=== PATIENT | female | born 1930 | race Caucasian/White ===

== ENCOUNTER 2017-12-24 16:15 | Emergency (ER) | payer OTHER ==
[~2017-12-24] VITALS: Ht 162.6 cm; Wt 79.4 kg
[~2017-12-24 16:15] MED LIST: GLIPIZIDE5 MG PO; GLYBURID-METFO1 EAC3 PO; LOSARTAN PO; SOMA350 MG; Z.0.ACTOS30 MG PO; Z.0.SIMVASTATIN80 MG PO; [UNRECOGNIZED DRUG - OTHER] PO
[2017-12-24] MEDS ORDERED: ACETAMINOPHEN/CODEINE ELIX 120-12 MG/5 ML UDC NG ONE (17:00)
--- NOTE | 2017-12-24 18:06 | Diagnostic Imaging Report ---
Ankle complete CPT CODE: 31045 HISTORY: Fall several days ago TECHNIQUE: Three views left ankle obtained COMPARISON: None. FINDINGS: The bones are diffusely demineralized. The distal tibia and fibula appear intact. Ankle mortise remains symmetric. There may be minimal medial soft tissue swelling adjacent to the malleolus. The calcaneus appears intact with small plantar and posterior spurs. The visualized portions of the midfoot and forefoot are intact. No tibiotalar joint effusion. IMPRESSION: No evidence of acute fracture or dislocation involving the ankle. Signed by: Dr. Andrez Tracy MD on 12/24/2017 6:03 PM
--- NOTE | 2017-12-24 18:08 | Diagnostic Imaging Report ---
Ankle complete CPT CODE: 86771 HISTORY: Fall several days ago TECHNIQUE: Three views right ankle obtained COMPARISON: None. FINDINGS: The bones are diffusely demineralized. The distal tibia and fibula appear intact. Ankle mortise remains symmetric. There is mild bilateral soft tissue swelling adjacent to the malleoli. The calcaneus appears intact with a small plantar spur. The visualized portions of the midfoot and forefoot are intact. No tibiotalar joint effusion. IMPRESSION: No evidence of acute fracture or dislocation involving the ankle. Signed by: Dr. Andrez Tracy MD on 12/24/2017 6:04 PM
--- NOTE | 2017-12-24 18:10 | Diagnostic Imaging Report ---
Tibia fibula right CPT code: 33893 Indication: Fall several days ago Technique: AP and lateral views of the right tibia and fibula obtained. Comparison: None Findings: The bones are diffusely demineralized. The patella is intact and normally situated without joint effusion. The distal femur is intact. There are mild degenerative changes of the medial, lateral, patellofemoral compartments with chondrocalcinosis. The tibia and fibula are intact. No focal osseous lesions. Soft tissues: No radiopaque foreign bodies. IMPRESSION: 1. No acute fracture or dislocation. 2. Tricompartmental osteoarthritis of the knee as described above. Signed by: Dr. Andrez Tracy MD on 12/24/2017 6:06 PM
--- NOTE | 2017-12-24 18:11 | Diagnostic Imaging Report ---
Right complete knee. CPT CODE: 16979. INDICATION: Fall several days ago COMPARISON: None FINDINGS: The bones are diffusely demineralized. There is mild medial, lateral, patellofemoral compartment narrowing with osteophytosis and chondrocalcinosis. No acute fracture or dislocation. No joint effusion. There are calcifications of the arterial structures. IMPRESSION: No acute traumatic pathology or joint effusion. Tricompartmental osteoarthritis as described above. Signed by: Dr. Andrez Tracy MD on 12/24/2017 6:07 PM
--- NOTE | 2017-12-24 18:14 | Diagnostic Imaging Report ---
Pelvis CPT code: 53106 Indication: Fall several days ago Technique: A.P. view of the pelvis obtained Comparison: None Findings: No diastases of the pubic symphysis or sacroiliac joints. There are moderate degenerative changes of the lower lumbar spine. The hips are intact and normally aligned with mild degenerative changes. Proximal femurs are intact. Diffuse vascular calcifications are present in the arterial structures. Numerous phleboliths are present. IMPRESSION: No fracture or dislocation on this single image. If there is strong clinical concern for hip fracture, recommend dedicated imaging. Signed by: Dr. Andrez Tracy MD on 12/24/2017 6:11 PM
[2017-12-24 18:37] VITALS: BP 142/66
--- NOTE | 2017-12-24 19:05 | Diagnostic Imaging Report ---
EXAM: Unilateral Lower Extremity Venous Duplex Ultrasound INDICATION: fall, right leg pain and swelling COMPARISON: None TECHNIQUE: Cho scale, color Doppler and spectral waveform analysis of the right lower extremity deep venous system was performed. FINDINGS: Common Femoral: Fully compressible with normal spontaneous waveforms. Femoral: Fully compressible with normal spontaneous waveforms. Popliteal: Fully compressible with normal spontaneous waveforms. Posterior tibial veins: Patent with normal waveforms. Peroneal veins: Not visualized. As result, augmentation was not performed. IMPRESSION: No evidence of deep venous thrombosis above the right calf. Signed by: Dr. Andrez Tracy MD on 12/24/2017 7:01 PM
== END 2017-12-24 18:35 | disposition home or self-care (01) ==
LOC: FSED 16:15
DX: S90.01XA Contusion of right ankle, initial encounter (principal); S70.02XA Contusion of left hip, initial encounter; S70.01XA Contusion of right hip, initial encounter; S80.01XA Contusion of right knee, initial encounter; S80.11XA Contusion of right lower leg, initial encounter; X50.1XXA Overexertion from prolonged static or awkward postures, initial encounter; Y93.01 Activity, walking, marching and hiking; Y92.007 Garden or yard of unspecified non-institutional (private) residence as the place of occurrence of the external cause
CPT/HCPCS: 72170; 93971; 99284

== ENCOUNTER 2019-12-15 21:56 | Emergency (ER) | payer OTHER ==
[~2019-12-15] VITALS: Ht 162.6 cm; Wt 79.4 kg
--- OUTSIDE RECORDS SUMMARY | 2019-12-15 22:36 | XMS REPORT ---
Author Author MEG Iglesias Organization [employer] Address Unknown Phone Unavailable Care Team Providers Care Expressive Music Therapist Name Role Phone Kelsie Iglesias CP Unavailable Allergies, Adverse Reactions, Alerts Substance Reaction Event Type N.K.D.A. 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, type I [juvenile type], not stated as uncontrolled 250.01 Active Assessment Palpitations R00.2 Active Assessment Other symptoms involving cardiovascular system R09.89 Active Assessment 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 Active Medications Medication Code System Code Instructions Start Date End Date Status Dosage Pioglitazone HCl ND 99239643133 30 MG Orally Once a day Active 1 tablet Metoprolol Tartrate ND 23710507539 25 Orally Twice a day Active TAKE 1 TABLET BY MOUTH TWICE DAILY Simvastatin ND 12626903492 80 MG Orally Once a day Active 1 tablet in the evening Vitamin D ND 41432131281 1000 UNIT Orally Once a day Active 1 tablet Amlodipine Besylate ND 63143620798 5 MG Orally Once a day Active 1 tablet Lopressor ND 07310547817 25 MG Orally Twice a day A ctive 1 tablet Glimepiride ND 17357790896 Orally Once a day Activ e 1 tablet with breakfast or the first main meal of the day Vital Signs Date/Time: May 24, 2019 BMI 31.05 Index Weight 159 lbs Height 5'4 in Cardiac Monitoring Heart Rate 60 /min Blood Pressure Diastolic 80 mm Hg Blood Pressure Systolic 110 mm Hg Results No Known Results Summary Purpose [employer] Submission
--- OUTSIDE RECORDS SUMMARY | 2019-12-15 22:36 | XMS REPORT ---
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
--- OUTSIDE RECORDS SUMMARY | 2019-12-15 22:36 | XMS REPORT | Continuity of Care Document ---
Author Author [facility] t Organization [facility] Address [address] [place] [address] Phone Unavailable Care Team Providers Care Dietetic Tech Name Role Phone NONSTAFF PCP Unavailable Brannon PACK Unavailable Payers Payer Name Policy Type Policy Number Effective Date Expiration Date Leonela Camargo [id number] 2015 00:00:00 PAL[place]A morales [facility] Problems Condition Name Condition Details Condition Category Status Onset Date Resolution Date Last Treatment Date Treating Clinician Comments Source Other symptoms involving cardiovascular system Other symptoms involving cardiovascular system Active Diagnosis 11/11/2019 [facility] Diagnosis Active 2019-11-11 03:05:26 [facility] Atheroscler of enterprise artery of both legs with intermi t claudication Atheroscler of enterprise artery of both legs with intermit claudication Active Diagnosis 11/11/2019 [facility] Diagnosis Active 2019-11-11 03:05:26 [facility] 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 Active Problem 11/11/2019 [facility] Problem Active 2019-11-11 03:05:26 [facility] 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 Atherosclerosis of enterprise arteries of the extremities with intermittent claudication Active Problem 11/11/2019 [facility] Problem Active 2019-11-11 03:05:26 [facility] Diabetes mellitus without mention of com plication, type I [juvenile type], not stated as uncontrolled Diabetes mellitu s without mention of complication, type I [juvenile type], not stated as uncontrolled Active Problem 11/11/2019 med med Problem Active 2019-11-11 03:05:26 [facility] DM w/o complication type II, uncontrolled DM w/o complication type II, uncontrolled Active Diagnosis 11/11/2019 med [facility] Diagnosis Active 2019-11-11 03:05:26 Maribell Monkann Pure hypercholesterolemia Pure hypercholesterolemia Active Diagnosis 03/23/2017 Ahmed Ahmed Diagnosis Active 2017-03-23 04:17:10 Maribell Monkann Benign hypertensive heart disease without congestive h eart failure Benign hypertensive heart disease without congestive heart failure Active Diagnosis 11/11/2019 Ahmed Ahmed Diagnosis Active 2019-11-11 03:05:26 Maribell Monkann Palpitations Palp itations Active Diagnosis 11/11/2019 Ahmed [facility] Diagnosis Active 2019-11-11 03:05:26 [facility] Pure hypercholesterolemia Pure hypercholesterolemia Active Diagnosis 11/11/2019 Ahmed Ahmed Diagnosis Active 2019-11-11 03:05:26 [facility] Other symptoms involving cardiovascular system Other symptoms involving cardiovascular system Active Diagnosis 03/25/2016 Ahmed Ahmed Diagnosis Active 2016-03-25 04:17:09 Maribell Monkann Diabetes Mellitus Diab etes Mellitus Active 03/06/2013 [facility] Problem Active 2013-03-06 19:01:42 [facility] Hypertension Hype rtension Active 03/06/2013 [facility] Problem Active 2013-03-06 19:01:42 [facility] Hyperlipidemia Hype rlipidemia Active 03/06/[address] May Casiano [facility] Problem Active 2013-03-06 19:01:42 [facility] Chest Pain Ches t Pain Active 02/08/2013 Instructed to go to ER if chest pain last more than 5 minutes or not relieved with nitrogylcerin. [facility] Problem Active 2013-02-08 18:17:04 [facility] Allergies, Adverse Reactions, Alerts Allergy Name Allergy Type Status Severity Reaction(s) Onset Date Inacti ve Date Treating Clinician Comments Source N.Rocky.Soumya.A. N.K.Soumya.A. Active Info Not Available 2019-05-24 00:00:00 Maribell Tai No Known Drug Allergies No Known Drug Allergies Active [facility] Family History Family Member Diagnosis Comments Start Date Stop Date Source Unknown Family Member Family History 2013-01-23 19:32:29 2 19:32:29 [facility] Social History Social Habit Start Date Stop Date Quantity Comments Source [place]2016-01-14 00:00:00 2016-01-14 00:00:00 [facility] Social History 2013-03-06 19:01:42 2013-03-06 19:01:42 [facility] Medications Ordered Medication Name Filled Medication Name Start Date Stop Da te Current Medication? Ordering Clinician Indication Dosage Frequency Signature (SIG) Comments Components Source Glimepiride 2019-11-11 03:05:26 Yes Ahmed Ahmed 1 tablet with breakfast or the first main meal of the day [facility] Simvastatin 2019-11-11 03:05:26 Yes Ahmed Ahmed 1 tablet in the evening [facility] Lopressor 2019-11-11 03:05:26 Yes Ahmed Ahmed 1 t ablet [facility] Metoprolol Tartrate 2019-11-11 03:05:26 Yes Ahmed Ahmed TAKE 1 TABLET BY MOUTH TWICE DAILY [facility] Pioglitazone HCl 2019-11-11 03:05:26 Yes Ahmed Ahmed 1 tablet [facility] Vitamin D 2019-11-11 03:05:26 Yes Ahmed Ahmed 1 t ablet [facility] Amlodipine Besylate 2019-11-11 03:05:26 Yes Ahmed Ahmed 1 tablet [facility] Metoprolol Tartrate 2019-11-10 03:59:50 Yes Ahmed Ahmed TAKE 1 TABLET BY MOUTH TWICE DAILY [facility] Losartan Potassium 2018-08-30 03:23:47 Yes Ahmed Ahmed 1 tablet [facility] Actos 2018-08-30 03:23:47 Yes Ahmed Ahmed 1 table t [facility] Clonidine HCl 2018-08-30 02:53:56 Yes Ahmed Ahmed 1 tablet at bedtime [facility] Lopressor 2016-03-25 04:17:09 Yes Ahmed Ahmed 1 t ablet [facility] Actos 2016-03-25 04:17:09 Yes Ahmed Ahmed 1 table t [facility] Glimepiride 2016-03-25 04:17:09 Yes Ahmed Ahmed 1 tablet with breakfast or the first main meal of the day [facility] Simvastatin 2016-03-25 04:17:09 Yes Ahmed Ahmed 1 tablet in the evening [facility] Clonidine HCl 2016-03-25 04:17:09 Yes Ahmed Ahmed 1 tablet at bedtime [facility] Losartan Potassium 2016-03-25 04:17:09 Yes Ahmed Ahmed 1 tablet [facility] Simvastatin 40 MG Oral Tablet 2013-03-06 19:01:42 Yes (Active) [facility] Losartan Potassium 50 MG Oral Tablet 2013-03-06 19:01:42 Ye s (Active) Maribell Tai Actos 30 MG Oral Tablet 2013-03-06 19:01:42 Yes (Active) Maribell Tai GlyBURIDE 5 MG Oral Tablet 2013-03-06 19:01:42 Yes (Active) Maribell Tai TraMADol HCl 50 MG Oral Tablet 2013-02-08 18:17:04 Yes (Active) Maribell Tai Carisoprodol 350 MG Oral Tablet 2013-02-08 18:17:04 Yes (Active) Maribell Tai Metoprolol Succinate ER 25 MG Oral Tablet Extended Release 2 4 Hour 2013-01-23 05:00:00 Yes ; Start Date: 3; End Date: (Active) Maribell Tai Glipizide 5 Mg Tablet Glipizide 5 Mg Tablet Yes 5 Twice A Day [facility] Glyburide, Micro/Metformin Hcl (Glyburid-Metformin 5-5 00 Mg Tb) 1 Each Tablet Glyburide, Micro/Metformin Hcl (Glyburid-Metformin 5-500 Mg Tb) 1 Each Tablet Yes 2 Twice A Day [facility] Pioglitazone Hcl (Actos) 30 Mg Tablet Pioglitazone Hcl (Actos) 30 M g Tablet Yes 30 Daily [facility] Simvastatin 80 Mg Tablet Simvastatin 80 Mg Tablet Yes 80 Daily [facility] Carisoprodol (Soma) 350 Mg Tablet, Carisoprodol (Soma) 350 Mg Vasu rose, 2014-07-11 00:00:00 [facility] Losartan , Oral Losartan , Oral 2014-07-11 00:00:00 No Daily [facility] Olmesartan Medoxomil (Benicar) 5 Mg Tablet, Mg Oral O lmesartan Medoxomil (Benicar) 5 Mg Tablet, Mg Oral 2012-09-30 00:00:00 [facility] Vital Signs Vital Name Observation Time Observation Value Comments Source Weight 2019-05-24 15:15:00 Maribell Tai Heart Rate 2019-05-24 15:15:00 Maribell Tai Diastolic (mm Hg) 2019-05-24 15:15:00 [facility] Systolic (mm Hg) 2019-05-24 15:15:00 [facility] Weight 2018-11-17 19:00:00 [facility] Heart Rate 2018-11-17 19:00:00 [facility] Diastolic (mm Hg) 2018-11-17 19:00:00 [facility] Systolic (mm Hg) 2018-11-17 19:00:00 [facility] Weight 2018-05-17 19:00:00 [facility] Heart Rate 2018-05-17 19:00:00 [facility] Diastolic (mm Hg) 2018-05-17 19:00:00 [facility] Systolic (mm Hg) 2018-05-17 19:00:00 [facility] Weight 2018-01-13 18:00:00 [facility] Heart Rate 2018-01-13 18:00:00 [facility] Diastolic (mm Hg) 2018-01-13 18:00:00 [facility] Systolic (mm Hg) 2018-01-13 18:00:00 [facility] Weight 2017-06-28 20:45:00 [facility] Heart Rate 2017-06-28 20:45:00 [facility] Diastolic (mm Hg) 2017-06-28 20:45:00 [facility] Systolic (mm Hg) 2017-06-28 20:45:00 [facility] [place] Weight 2017-03-09 16:00:00 [facility] Heart Rate 2017-03-09 16:00:00 [facility] Diastolic (mm Hg) 2017-03-09 16:00:00 [facility] Systolic (mm Hg) 2017-03-09 16:00:00 [facility] Weight 2016-12-29 17:15:00 [facility] Heart Rate 2016-12-29 17:15:00 [facility] Diastolic (mm Hg) 2016-12-29 17:15:00 [facility] Systolic (mm Hg) 2016-12-29 17:15:00 [facility] Weight 2016-10-13 16:00:00 [facility] Heart Rate 2016-10-13 16:00:00 [facility] Diastolic (mm Hg) 2016-10-13 16:00:00 [facility] Systolic (mm Hg) 2016-10-13 16:00:00 [facility] Weight 2016-01-14 16:45:00 [facility] Heart Rate 2016-01-14 16:45:00 [facility] Diastolic (mm Hg) 2016-01-14 16:45:00 [facility] Systolic (mm Hg) 2016-01-14 16:45:00 [facility] Weight 2015-12-19 20:15:00 [facility] Heart Rate 2015-12-19 20:15:00 [facility] Diastolic (mm Hg) 2015-12-19 20:15:00 [facility] Systolic (mm Hg) 2015-12-19 20:15:00 [facility] Weight 2015-11-06 21:00:00 [facility] Heart Rate 2015-11-06 21:00:00 [facility] Diastolic (mm Hg) 2015-11-06 21:00:00 [facility] Systolic (mm Hg) 2015-11-06 21:00:00 [facility] Weight 2015-10-15 19:30:00 [facility] Heart Rate 2015-10-15 19:30:00 [facility] Diastolic (mm Hg) 2015-10-15 19:30:00 [facility] Systolic (mm Hg) 2015-10-15 19:30:00 [facility] Weight 2015-03-21 17:30:00 [facility] Heart Rate 2015-03-21 17:30:00 [facility] Diastolic (mm Hg) 2015-03-21 17:30:00 [facility] Systolic (mm Hg) 2015-03-21 17:30:00 [facility] Weight 2014-06-07 20:45:00 [facility] Heart Rate 2014-06-07 20:45:00 [facility] Diastolic (mm Hg) 2014-06-07 20:45:00 [facility] Systolic (mm Hg) 2014-06-07 20:45:00 [facility] Procedures This patient has no known procedures. Plan of Care Planned Activity Planned Date Details Comments Source Future Scheduled Test 2013-02-07 21:18:09 Plan of Care [code = 1877 6-5] [facility] Future Scheduled Test 2013-01-23 19:32:29 Plan of Care [code = 1877 6-5] [facility] Encounters Start Date/Time End Date/Time Encounter Type Admission Type [facility] Care Department Encounter ID Source 2019-09-29 07:55:00 2019-09-29 07:55:00 [facility] [id number] [facility] 2019-06-27 09:28:00 2019-06-27 09:28:00 [facility] [id number] [facility] 2019-05-24 10:15:00 2019-05-24 10:15:00 [facility] [id number] [facility] 2018-11-17 14:00:00 2018-11-17 14:00:00 [facility] [id number] [facility] 2018-10-20 09:16:00 2018-10-20 09:16:00 [facility] [id number] [facility] 2018-10-12 09:36:00 2018-10-12 09:36:00 [facility] [id number] [facility] 2018-05-17 14:00:00 2018-05-17 14:00:00 [facility] [id number] [facility] 2018-01-13 13:00:00 2018-01-13 13:00:00 [facility] [id number] [facility] 2017-12-24 16:15:00 2017-12-24 18:35:00 Departed Emergency Room 1 RAMONE OLAF [facility] [id number] [facility] 2017-06-28 15:45:00 2017-06-28 15:45:00 [facility] [id number] [facility] 2017-03-09 10:00:00 2017-03-09 10:00:00 [facility] [id number] [facility] 2016-12-29 11:15:00 2016-12-29 11:15:00 [facility]patient [facility] [id number] [facility] 2016-10-13 10:00:00 2016-10-13 10:00:00 Outpatient [facility] [id number] [facility] 2016-01-21 09:39:00 2016-01-21 09:39:00 Outpatient Kelsie Iglesias MD, WAQAR Ig[place]ias [place], [place] [id number] [facility]Works 2016-01-14 10:45:00 2016-01-14 10:45:00 Outpatient Kelsie Iglesias MD, WAQAR Ig[place]ias [place], [place] [id number] [facility] 2015-12-19 14:15:00 2015-12-19 14:15:00 Outpatient Kelsie Iglesias MD, WAQAR Ig[place]ias [place], [place] [id number] [facility] 2015-11-06 15:00:00 2015-11-06 15:00:00 Outpatient Kelsie Iglesias MD, WAQAR Ig[place]ias [place], [place] [id number] [facility] 2015-10-15 13:30:00 2015-10-15 13:30:00 Outpatient Kelsie Iglesias MD, WAQAR [place]ias [place], [place] [id number] [facility] 2015-03-21 11:30:00 2015-03-21 11:30:00 Outpatient Kelsie Iglesias MD, WAQ[place], [place] [id number] [facility] 2014-06-07 14:45:00 2014-06-07 14:45:00 Outpatient Kelsie Iglesias MD, WAQAR [place]ias [place], [place] [id number] [facility] 2013-03-06 14:01:43 2013-03-06 14:01:42 Outpatient [facility] [id number] 2013-02-08 13:17:04 2013-02-08 13:17:04 Outpatient [facility] [id number] 2013-02-07 16:18:10 2013-02-07 16:18:09 Outpatient [facility] [id number] 2013-01-23 14:32:29 2013-01-23 14:32:29 Outpatient [facility] [id number] Results Test Description Test Time Test Comments Results Result Comments Source US LOW EXT VEINS LIMITED UNI 2017-12-24 18:57:00 [place] [address] Patient Name: MEG VIEYRA MR #: [id number] : 1930 Age/Sex: 87/F Req #: [id number] Adm Physician: Ordered by: OLAF PACK MD Report #: [id number] Location: [facility] Room/Bed: Procedure: [id number] HOPD/US LOW EXT VEINS LIMITED UNI Exam Date: 12/24/17 Exam Time: 1839 REPORT STATUS: Signed EXAM: Unilateral Lower Extremity Venous Duplex Ultrasound INDICATION: fall, right leg pain and swelling COMPARISON: None TECHNIQUE: Cho scale, color Doppler and spectral waveform analysis of the right lower extremity deep venous system was performed. FINDINGS: Common Femoral: Fully compressible with normal spontaneous waveforms. Femoral: Fully compressible with normal spontaneous waveforms. Popliteal: Fully compressible with normal spontaneous waveforms. Posterior tibial veins: Patent with normal waveforms. Peroneal veins: Not visualized. As result, augmentation was not performed. IMPRESSION: No evidence of deep venous thrombosis above the right calf. Signed by: Dr. Mark Anthony Tracy MD on 12/24/2017 7:01 PM Dictated By: MARK ANTHONY TRACY MD 00 Transcribed By: ABDULKADIR on 12/24/171900 COPY TO: OLAF PACK MD PELVIS 1-2 VIEW - HOPD 2017-12-24 18:08:00 [place] [address] Patient Name: MEG VIEYRA MR #: [id number] : 1930 Age/Sex: 87/F Req #: [id number] Adm Physician: Ordered by: OLAF PACK MD Report #: [id number] Location: [facility] Room/Bed: Procedure: [id number] HOPD/PELVIS 1-2 VIEW - HOPD Exam Date: Exam Time: REPORT STATUS: Signed Pelvis CPT code: 93833 Indication: Fall several days ago Technique: A.P. view of the pelvis obtained Comparison: None Findings: No diastases of the pubic symphysis or sacroiliac joints. There are moderate degenerative changes of the lower lumbar spine. The hips are intact and normally aligned with mild degenerative changes. Proximal femurs are intact. Diffuse vascular calcifications are present in the arterial structures. Numerous phleboliths are present. IMPRESSION: No fracture or dislocation on this single image. If there is strong clinical concern for hip fracture, recommend dedicated imaging. Signed by: Dr. Mark Anthony Tracy MD on 12/24/2017 6:11 PM Dictated By: MARK ANTHONY TRACY MD 10 Transcribed By: ABDULKADIR on 12/24/171810 COPY TO: OLAF PACK MD KNEE 3VW RT - HOPD 2017-12-24 18:06:00 [place] [address] Patient Name: MEG VIEYRA MR #: [id number] : 1930 Age/Sex: 87/F Req #: [id number] Adm Physician: Ordered by: OLAF PACK MD Report #: [id number] Location: [facility] Room/Bed: Procedure: HOPD/KNEE 3VW RT - HOPD Exam Date: Exam Time: REPORT STATUS: Signed Right complete knee. CPT CODE: 99779. INDICATION: Fall several days ago COMPARISON: None FINDINGS: The bones are diffusely demineralized. There is mild medial, lateral, patellofemoral compartment narrowing with osteophytosis and chondrocalcinosis. No acute fracture or dislocation. No joint effusion. There are calcifications of the arterial structures. IMPRESSION: No acute traumatic pathology or joint effusion. Tricompartmental osteoarthritis as described above. Signed by: Dr. Mark Anthony Tracy MD on 12/24/2017 6:07 PM Dictated By: MARK ANTHONY TRACY MD 06 Transcribed By: ABDULKADIR on 12/24/171806 COPY TO: OLAF PACK MD TIB/FIB 2VW RT - HOPD 2017-12-24 18:05:00 [place] [address] Patient Name: MEG VIEYRA MR #: [id number] : 1930 Age/Sex: 87/F Req #: [id number] [facility] Physician: Ordered by: OLAF PACK MD Report #: [id number] Location: [facility] Room/Bed: Procedure: HOPD/TIB/FIB 2VW RT - HOPD Exam Date: Exam Time: REPORT STATUS: Signed Tibia fibula right CPT code: 25973 Indication: Fall several days ago Technique: AP and lateral views of the right tibia and fibula obtained. Comparison: None Findings: The bones are diffusely demineralized. The p atella is intact and normally situated without joint effusion. The distal femur is intact. There are mild degenerative changes of the medial, lateral, patellofemoral compartments with chondrocalcinosis. The tibia and fibula are intact. No focal osseous lesions. Soft tissues: No radiopaque foreign bodies. IMPRESSION: 1. No acute fracture or dislocation. 2. Tricompartmental osteoarthritis of the knee as described above. Signed by: Dr. Mark Anthony Tracy MD on 12/24/2017 6:06 PM Dictated By: MARK ANTHONY TRACY MD 05 Transcribed By: ABDULKADIR on 12/24/171805 COPY TO: OLAF PACK MD ANKLE 3 VIEW RT - HOPD 2017-12-24 18:03:00 [place] [address] Patient Name: MEG VIEYRA MR #: [id number] : 1930 Age/Sex: 87/F Req #: [id number] Adm Physician: Ordered by: OLAF PACK MD Report #: [id number] Location: [facility] Room/Bed: Procedure: [id number] HOPD/ANKLE 3 VIEW RT - HOPD Exam Date: Exam Time: REPORT STATUS: Signed Ankle complete CPT CODE: 69850 HISTORY: Fall several days ago TECHNIQUE: Three views right ankle obtained COMPARISON: None. FINDINGS: The bones are diffusely demineralized. The distal tibia and fibula appear intact. Ankle mortise remains symmetric. There is mild bilateral soft tissue swelling adjacent to the malleoli. The calcaneus appears intact with a small plantar spur. The visualized portions of the midfoot and forefoot are intact. No tibiotalar joint effusion. IMPRESSION: No evidence of acute fracture or dislocation involving the ankle. Signed by: Dr. Mark Anthony Tracy MD on 12/24/2017 6:04 PM Dictated By: MARK ANTHONY TRACY MD 03 Transcribed By: ABDULKADIR on 12/24/171803 COPY TO: OLAF PACK MD [facility] 2017-12-[facility] 18:01:00 [place] [address] Patient Name: MEG VIEYRA MR #: [id number] : 1930 Age/Sex: 87/F Req #: [id number] Adm Physician: Ordered by: OLAF PACK MD Report #: [id number] Location: [facility] Room/Bed: Procedure: [id number] HOPD[facility]ANKLE [facility] Exam Date: Exam Time: REPORT STATUS: Signed Ankle complete CPT CODE: 64094 HISTORY: Fall several days ago TECHNIQUE: Three views left ankle obtained COMPARISON: None. FINDINGS: The bones are diffusely demineralized. The distal tibia and fibula appear intact. Ankle mortise remains symmetric. There may be minimal medial soft tissue swelling adjacent to the malleolus. The calcaneus appears intact with small plantar and posterior spurs. The visualized portions of the midfoot and forefoot are intact. No tibiotalar joint effusion. IMPRESSION: No evidence of acute fracture or dislocation involving the ankle. Signed by: Dr. Mark Anthony Tracy MD on 12/24/2017 6:03 PM Dictated By: MARK ANTHONY TRACY MD 02 Transcribed By: ABDULKADIR on 12/24/171802 COPY TO: OLAF PACK MD
--- OUTSIDE RECORDS SUMMARY | 2019-12-15 22:36 | XMS REPORT ---
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
--- OUTSIDE RECORDS SUMMARY | 2019-12-15 22:36 | XMS REPORT ---
Author Author MEG DEE Organization Unknown Address Unknown Phone Care Team Providers Care Legislators Name Role Phone LUIZ PRASHANTH PP Unavailable Reason for Referral No Reason for Referral was given. History of Present Illness No HPI available. Problems * Normal Routine History And Physical Geriatric (80 +) (V70.0); (Active) * Diabetes Mellitus (250.00); (Active) * Hypertension (401.9); (Active) * Hyperlipidemia (272.4); (Active) * Chest Pain Comments: Instructed to go to ER if chest pain last more than 5 minutes or not relieved with nitrogylcerin. (786.50); (Active) Medication * Simvastatin 40 MG Oral Tablet; TAKE 1 TABLET DAILY. (Active) * Losartan Potassium 50 MG Oral Tablet; TAKE 1 TABLET DAILY. (Active) * TraMADol HCl 50 MG Oral Tablet; TAKE TABLET PRN (Active) * Actos 30 MG Oral Tablet; TAKE 1 TABLET ONCE DAILY. (Active) * GlyBURIDE 5 MG Oral Tablet; TAKE 1 TABLET DAILY. (Active) * Carisoprodol 350 MG Oral Tablet; TAKE 1/2 TABLET AT BEDTIME NEEDED. (Active) * Metoprolol Succinate ER 25 MG Oral Tablet Extended Release 24 Hour; TAKE 1 TABLET BEDTIME; Start Date: 01/23/2013; End Date: (Active) Allergies and Adverse Reactions * No Known Drug Allergies (Active) Past Medical History * No Significant Medical History Procedures Procedure Procedure Date Date Completed Status Tonsillectomy - - Resolved Appendectomy - - Resolved Cholecystectomy - - Resolved Back Surgery - - Resolved Hysterectomy - - Resolved Cataract Surgery - - Resolved Shoulder Surgery Right - - Resolved Family History * Fraternal history of Heart Disease (V17.49); (Active) * Maternal history of Stroke Syndrome (V17.1); (Active) * Fraternal history of Heart Disease (V17.49); (Active) Social History * Activities Of Daily Living (Active) * Never A Smoker (Active) Treatment Plan * [N] Nuclear Stress Test Myocardial Perfusion Study with Wall Motion 25782 Routine Advance Directives * No Advance Directives available. Encounters * AUDIT 01/23/2013 * BONNIE, Provider: DARLYN CHENG, Status: Joshua, Time: 8:00 AM 02/08/2013 * EST, Provider: PRASHANTH DEE, Status: Joshua, Time: 1:30 PM 03/06/2013
--- OUTSIDE RECORDS SUMMARY | 2019-12-15 22:36 | XMS REPORT ---
Author Author MEG Mcdonald Organization Unknown Address Unknown Phone Care Team Providers Care Refiner Operator Name Role Phone Mike Mcdonald PP Unavailable Reason for Referral No Reason [...] Living (Active) * Never A Smoker (Active) Advance Directives * No Advance Directives available. Encounters * AUDIT 02/08/2013 * EST, Provider: PRASHANTH DEE, Status: Pen, Time: 1:30 PM 03/06/2013
--- OUTSIDE RECORDS SUMMARY | 2019-12-15 22:36 | XMS REPORT ---
Author Author MEG Mason Organization Unknown Address Unknown Phone Care Team Providers Care Florist Supplies Salesperson Name Role Phone Penny Mason PP Unavailable Reason for Referral No Reason [...] Test Myocardial Perfusion Study with Wall Motion 18827 02/08/2013 Routine Advance Directives * No Advance Directives available. Encounters * AUDIT 02/07/2013 * BONNIE, Provider: DARLYN CHENG, Status: Joshua, Time: 8:00 AM 02/08/2013 * EST, Provider: PRASHANTH DEE, Status: Joshua, Time: 1:30 PM 03/06/2013
--- OUTSIDE RECORDS SUMMARY | 2019-12-15 22:36 | XMS REPORT ---
Author Author MEG Iglesias Organization [employer] Address Unknown Phone Unavailable Care Team Providers Care Toddler Caregiver Name Role Phone Kelsie Iglesias CP Unavailable Allergies, Adverse Reactions, Alerts Substance Reaction Event Type N.K.D.A. 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.10 Active Problem Atherosclerosis of [place] ar teries of the extremities with intermittent [...] Instructions Start Date End Date Status Dosage Vitamin D [facility] 43393016927 1000 UNIT Orally Once a day Active 1 tablet Simvastatin ND 29270513654 80 MG Orally Once a day Active 1 tablet in the evening Lopressor ND 90324527590 25 MG Orally Twice a day A ctive 1 tablet Pioglitazone HCl ND 01831400626 30 MG Orally Once a day Active 1 tablet Amlodipine Besylate ND 54705965902 5 MG Orally Once a day Active 1 tablet Metoprolol Tartrate ND 00572508652 25 Active TAKE 1 TABLET BY MOUTH TWICE DAILY Glimepiride ND 57262744090 Orally Once a day Activ e 1 tablet with breakfast or the first main meal of the day Vital Signs Date/Time: November 17, 2018 BMI 33.98 Index Weight 174 lbs Height 5'4 in Cardiac Monitoring Heart Rate 62 /min Blood Pressure Diastolic 72 mm Hg Blood Pressure Systolic 122 mm Hg Results No Known Results Summary Purpose eClinicalWorks Submission
--- OUTSIDE RECORDS SUMMARY | 2019-12-15 22:36 | XMS REPORT | Continuity of Care Document ---
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 Active Problem 11/11/2019 Kelsie Sharpemed Diabetes mellitus without mention of com plication, type I [juvenile type], not stated as uncontrolled Active Problem 11/11/2019 Dellmed Dellmed DM w/o complication type II, uncontrolled Active Diagnosis 11/11/2019 Ahmed Ahmed Pure hypercholesterolemia Acti ve Diagnosis 1 05/23/2016 Kelsie Sharpemed 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 May Casiano [facility] Chest Pain Active 02/08/2013 Instructed to go to ER if chest pain last more than 5 minutes or not relieved with nitrogylcerin. [facility] Medications Medication Details Route Status Patient Instructions Ordering Provider Order Date Source Metoprolol Succinate ER 25 MG Oral Table t Extended Release 24 Hour ; Start Date: 01/23/2013; End Date: 05/1899 (Active) Active 01/23/2013 [facility] Glimepiride 1 tablet with catherine kfast or the first main meal of the day Orally Active Orally Once a day Kelsie Iglesias Clonidine HCl 1 tablet at bedt marcia Orally Active 0.1 MG Orally Once a day [facility] Losartan Potassium 1 tablet Orally Active 50 MG [facility] tablet Orally Active Orally Once a day [facility] Simvastatin 1 tablet in the ev ening Orally Active 80 MG Orally [facility] Lopressor 1 tablet Orally Active 25 MG Orally Twice a da y [facility] Metoprolol Tartrate TAKE 1 TAB LET BY MOUTH TWICE DAILY NA Active [facility] Lop[facility] 1 tablet Orally Active 25 MG Orally Twice a da y [facility] Actos 1 tablet Orally Active Orally Once a day [facility] Glimepiride 1 tablet with catherine kfast or the first main meal of the day Orally Active Orally Once a day [facility] Simvastatin 1 tablet in the ev ening Orally Active 80 MG Orally Once a day [facility] Clonidine HCl 1 tablet at bedt marcia Orally Active 0.1 MG Orally Once a day [facility] Losartan Potassium 1 tablet Orally Active 50 MG Orally Once a day [facility] Metoprolol Tartrate TAKE 1 TAB LET BY MOUTH TWICE DAILY Orally Active 25 Orally Twice a day [facility] Pioglitazone HCl 1 tablet Orally Active 30 MG Orally Once a day [facility] Vitamin D 1 tablet Orally Active 1000 UNIT Orally Once a day [facility] Amlodipine Besylate 1 tablet Orally Active 5 MG Orally Once a day [facility] Simvastatin 40 MG Oral Tablet (Active) Active [facility] Losartan Potassium 50 MG Oral Tablet (Active) Active [facility] TraMADol HCl 50 MG Oral Tablet (Active) Active [facility] Actos 30 MG Oral Tablet (Acti ve) Active [facility] GlyBURIDE 5 MG Oral Tablet (A ctive) Active [facility] Carisoprodol 350 MG Oral Tablet (Active) Active [facility] Allergies, Adverse Reactions, Alerts Substance Category Reaction Severity Reaction type Status Date Reported Comments Source N.K.D.A. Adverse Reaction Info Not Available Adverse Reaction 05/24/2019 brian [facility] No Known Drug Allergies drug a llergy drug aller gy Active [facility] Immunizations No Data Provided for This Section Results No Data Provided for This Section Pathology Reports No Data Provided for This Section Diagnostic Reports No Data Provided for This Section Consultation Notes No Data Provided for This Section Discharge Summaries No Data Provided for This Section History and Physicals No Data Provided for This Section Vital Signs Vital Sign Value Date Comments Source Weight 159 05/24/2019 Ahmed Ahmed Heart Rate 60 05/24/2019 Ahmed Ahmed Diastolic (mm Hg) 80 05/24/2019 Ahmed Ahmed Systolic (mm Hg) 110 05/24/2019 Ahmed Ahmed Weight 174 11/17/2018 Ahmed Ahmed Heart Rate 62 11/17/2018 Ahmed Ahmed Diastolic (mm Hg) 72 11/17/2018 Ahmed Ahmed Systolic (mm Hg) 122 11/17/2018 Ahmed Ahmed Weight 176 05/17/2018 Ahmed Ahmed Heart Rate 56 05/17/2018 Ahmed Ahmed Diastolic (mm Hg) 80 05/17/2018 Ahmed Ahmed Systolic (mm Hg) 108 05/17/2018 Ahmed Ahmed Weight 174 01/13/2018 Ahmed Ahmed Heart Rate 52 01/13/2018 Ahmed Ahmed Diastolic (mm Hg) 80 01/13/2018 Ahmed Ahmed Systolic (mm Hg) 140 01/13/2018 Ahmed Ahmed Weight 174 06/28/2017 Ahmed Ahmed Heart Rate 64 06/28/2017 Ahmed Ahmed Diastolic (mm Hg) 70 06/28/2017 Ahmed Ahmed Systolic (mm Hg) 98 06/28/2017 Ahmed Ahmed Weight 170 03/09/2017 Ahmed Ahmed Heart Rate 64 03/09/2017 Ahmed Ahmed Diastolic (mm Hg) 80 03/09/2017 Ahmed Ahmed Systolic (mm Hg) 132 03/09/2017 Ahmed Ahmed Weight 179 12/29/2016 Ahmed Ahmed Heart Rate 52 12/29/2016 Ahmed Ahmed Diastolic (mm Hg) 80 12/29/2016 Ahmed Ahmed Systolic (mm Hg) 144 12/29/2016 Ahmed Ahmed Weight 179 10/13/2016 Ahmed Ahmed Heart Rate 60 10/13/2016 Ahmed Ahmed Diastolic (mm Hg) 84 10/13/2016 Ahmed Ahmed Systolic (mm Hg) 144 10/13/2016 Ahmed Ahmed Weight 179 01/14/2016 Ahmed Ahmed Heart Rate 56 01/14/2016 Ahmed Ahmed Diastolic (mm Hg) 66 01/14/2016 Ahmed Ahmed Systolic (mm Hg) 170 01/14/2016 Ahmed Ahmed Weight 179 12/19/2015 Ahmed Ahmed Heart Rate 84 12/19/2015 Ahmed Ahmed Diastolic (mm Hg) 74 12/19/2015 Ahmed Ahmed Systolic (mm Hg) 204 12/19/2015 Ahmed Ahmed Weight 179 11/06/2015 Ahmed Ahmed Heart Rate 64 11/06/2015 Ahmed Ahmed Diastolic (mm Hg) 74 11/06/2015 Ahmed Ahmed Systolic (mm Hg) 112 11/06/2015 Ahmed Ahmed Weight 179 10/15/2015 Ahmed Ahmed Heart Rate 64 10/15/2015 Ahmed Ahmed Diastolic (mm Hg) 70 10/15/2015 Ahmed Ahmed Systolic (mm Hg) 162 10/15/2015 Ahmed Ahmed Weight 175 03/21/2015 Ahmed Ahmed Heart Rate 68 03/21/2015 Ahmed Ahmed Diastolic (mm Hg) 72 03/21/2015 Ahmed Ahmed Systolic (mm Hg) 170 03/21/2015 Ahmed Ahmed Weight 173 06/07/2014 Ahmed Ahmed Heart Rate 64 06/07/2014 Ahmed Ahmed Diastolic (mm Hg) 66 06/07/2014 Ahmed Ahmed Systolic (mm Hg) 124 06/07/2014 Ahmed Ahmed Encounters Location Location Details Encounter Type Encounter Number Reason For Visit Attending Provider ADM Date DC Date Status Source AUDIT [id number] 01/23/2013 01/23/2013 [facility] AUDIT [id number] 02/07/2013 02/07/2013 [facility] BONNIE, Provi thierry: SE,NUCLEAR, Status: Pen, Time: 8:00 AM [id number] 02/09/20 13 02/07/2013 [facility] AUDIT [id number] 02/08/2013 02/08/2013 [facility] EST, Provi thierry: PRASHANTH PETTY, Status: Pen, Time: 1:30 PM [id number] 03/06/20 13 02/08/2013 [facility] AUDIT [id number] 03/06/2013 03/06/2013 [facility] Kelsie Iglesias MD, PA 2 mo f/u [id number] 06/07/19 15 06/07/2014 Kelsie Iglesias MD, PA 2 mo f/u [id number] 06/07/19 15 06/07/2014 Kelsie Iglesias MD, PA 9 mo f/u [id number] 03/21/20 15 03/21/2015 Kelsie Iglesias MD, PA f/u 6 [facility] [id number] 10/15/19 16 10/15/2015 Kelsie Iglesias MD, PA f/u 6 [facility] [id number] 10/15/19 16 10/15/2015 Kelsie Iglesias MD, PA f/u 6 [facility] [id number] 10/15/19 16 10/15/2015 Kelsie Iglesias MD, PA f/u 6 [facility] [id number] 10/15/19 16 10/15/2015 Kelsie Iglesias MD, PA f/u 6 [facility] [id number] 10/15/19 16 10/15/2015 Kelsie Iglesias MD, PA f/u 6 [facility] [id number] 10/15/19 16 10/15/2015 Kelsie Iglesias MD, PA f/u testing [id number] 11/06/19 16 11/06/2015 Kelsie Iglesias MD, PA f/u testing [id number] 11/06/19 16 11/06/2015 Kelsie Iglesias MD, PA f/u testing [id number] 11/06/19 16 11/06/2015 Kelsie Iglesias MD, PA f/u testing [id number] 11/06/19 16 11/06/2015 Kelsie Iglesias MD, PA f/u testing [id number] 11/06/19 16 11/06/2015 Kelsie Iglesias MD, PA pt c/o irregular heartbeat [id number] 12/19/2015 12/19/2015 Kelsie Iglesias MD, PA pt c/o irregular heartbeat [id number] 12/19/2015 12/19/2015 Kelsie Iglesias MD, PA pt c/o irregular heartbeat [id number] 12/19/2015 12/19/2015 Kelsie Iglesias MD, PA pt c/o irregular heartbeat [id number] 12/19/2015 12/19/2015 Kelsie Iglesias MD, PA 3 wk f/u [id number] 01/14/20 16 01/14/2016 Kelsie Iglesias MD, PA 3 wk f/u [id number] 01/14/20 16 01/14/2016 Kelsie Iglesias MD, PA 3 wk f/u [id number] 01/14/20 16 01/14/2016 Kelsie Iglesias MD, PA Unknown [id number] 01/21/20 16 01/21/2016 Kelsie Iglesias MD, PA Unknown [id number] 01/21/20 16 01/21/2016 Kelsie Iglesias MD, PA Unknown [id number] 01/21/20 16 01/21/2016 Kelsie Iglesias MD, PA Unknown [id number] 01/21/20 16 01/21/2016 Kelsie Iglesias MD, PA Unknown [id number] 01/21/20 16 01/21/2016 Kelsie Iglesias MD, PA Unknown [id number] 01/21/20 16 01/21/2016 Kelsie Iglesias MD, PA Unknown [id number] 01/21/20 16 01/21/2016 Kelsie Iglesias Procedures No Data Provided for This Section Assessment and Plan No Data Provided for This Section Plan of Care Plan of Care Date Source [N] Nuclear Stress Test Myocardial Perf usion Study with Wall Motion [id number] 02/08/2013 Routine 02/07/2013 [facility] [N] Nuclear Stress Test Myocardial Perf usion Study with Wall Motion [id number] Routine 01/23/2013 [facility] Social History Social History Date Source Social History ElementQualifiersDate Rep orted Smoking: . Are you a: Never smoker Jan 14, 2016 Alcohol: . None Jan 14, 2016 01/14/2016 Kelsie Iglesias Activities Of Daily Living (Activ e) Never A Smoker (Active) 03/06/2013 [facility] Family History Value Date S ource Fraternal history of Heart Disease (V17. 49); (Active) Maternal history of Stroke Syndrome (V17.1); (Active) Fraternal history of Heart Disease (V17.49); (Active) 03/06/2013 [facility] Fraternal history of Heart Disease (V17. 49); (Active) Maternal history of Stroke Syndrome (V17.1); (Active) Fraternal history of Heart Disease (V17.49); (Active) 02/08/2013 [facility] Fraternal history of Heart Disease (V17. 49); (Active) Maternal history of Stroke Syndrome (V17.1); (Active) Fraternal history of Heart Disease (V17.49); (Active) 02/07/2013 [facility] Fraternal history of Heart Disease (V17. 49); (Active) Maternal history of Stroke Syndrome (V17.1); (Active) Fraternal history of Heart Disease (V17.49); (Active) 01/23/2013 [facility] Advance Directives Order Name Results Value Date Source Advance Directives Advance Dir ectives No Advance Directives available. 03/06/2013 [facility] Advance Directives Advance Dir ectives No Advance Directives available. 02/08/2013 [facility] Advance Directives Advance Dir ectives No Advance Directives available. 02/07/2013 [facility] Advance Directives Advance Dir ectives No Advance Directives available. 01/23/2013 [facility] Functional Status No Data Provided for This Section
--- OUTSIDE RECORDS SUMMARY | 2019-12-15 22:36 | XMS REPORT ---
Author Author MEG Iglesias Organization [employer] Address Unknown Phone Unavailable Care Team Providers Care Glass Products Inspector Name Role Phone Kelsie Iglesias CP Unavailable Allergies, Adverse Reactions, Alerts Substance Reaction Event Type N.K.D.A. 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 Active Problem Atherosclerosis of [place] ar teries of the extremities with intermittent [...] Date End Date Status Dosage Metoprolol Tartrate [facility] 47946950086 25 Active TAKE 1 TABLET BY MOUTH TWICE DAILY Actos [facility] 11042227808 Orally Once a day Active 1 tablet Clonidine HCl ND 60565816655 0.1 MG Orally Once a day Active 1 tablet at bedtime Losartan Potassium ND 14381603535 50 MG Orally Once a day Active 1 tablet Lopressor ND 72574178799 25 MG Orally Twice a day A ctive 1 tablet Simvastatin ND 88075158796 80 MG Orally Once a day Active 1 tablet in the evening Glimepiride ND 79537682207 Orally Once a day Activ e 1 tablet with breakfast or the first main meal of the day Vital Signs Date/Time: Jan 13, 2018 BMI 33.98 Index Weight 174 lbs Height 5'4 in Cardiac Monitoring Heart Rate 52 /min Blood Pressure Diastolic 80 mm Hg Blood Pressure Systolic 140 mm Hg Results No Known Results Summary Purpose eClinicalWorks Submission
--- OUTSIDE RECORDS SUMMARY | 2019-12-15 22:36 | XMS REPORT ---
Author Author MEG Iglesias Organization [employer] Address Unknown Phone Unavailable Care Team Providers Care Pressing Machine Operator Name Role Phone Kelsie Iglesias CP Unavailable Allergies, Adverse Reactions, Alerts Substance Reaction Event Type N.K.D.A. 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 Active Problem Atherosclerosis of [place] ar teries of the extremities with intermittent [...] Date End Date Status Dosage Metoprolol Tartrate ND 78250643887 25 Active TAKE 1 TABLET BY MOUTH TWICE DAILY Simvastatin ND 54909672266 80 MG Orally Once a day Active 1 tablet in the evening Losartan Potassium ND 96029081958 50 MG Orally Once a day Active 1 tablet Lopressor ND 32192768908 25 MG Orally Twice a day A ctive 1 tablet Actos ND 27968042105 Orally Once a day Active 1 tablet Glimepiride ND 61171868147 Orally Once a day Activ e 1 tablet with breakfast or the first main meal of the day Vital Signs Date/Time: May 17, 2018 BMI 34.37 Index Weight 176 lbs Height 5'4 in Cardiac Monitoring Heart Rate 56 /min Blood Pressure Diastolic 80 mm Hg Blood Pressure Systolic 108 mm Hg Results No Known Results Summary Purpose eClinicalWorks Submission
--- OUTSIDE RECORDS SUMMARY | 2019-12-15 22:36 | XMS REPORT ---
Author Author MEG DEE HUYDEBRA Organization Unknown Address Unknown Phone Care Team Providers Care Cash Applications Associate Name Role Phone ERLINLuis HUYDEBRA PP Unavailable Reason for Referral No Reason for Referral was given. History of Present Illness No HPI available. Problems * Normal Routine History And Physical Geriatric (80 +) (V70.0); (Active) * Diabetes Mellitus (250.00); (Active) * Hypertension (401.9); (Active) * Hyperlipidemia Comments: Followed by Dr. May Casiano (272.4); ( Active) Medication * Simvastatin 40 MG Oral Tablet; TAKE 1 TABLET DAILY. (Active) * Losartan Potassium 50 MG Oral Tablet; TAKE 1 TABLET DAILY. (Active) * Actos 30 MG Oral Tablet; TAKE 1 TABLET ONCE DAILY. (Active) * GlyBURIDE 5 MG Oral Tablet; TAKE 1 TABLET DAILY. (Active) * Metoprolol Succinate ER 25 MG [...] No Advance Directives available. Encounters * AUDIT 03/06/2013
--- OUTSIDE RECORDS SUMMARY | 2019-12-15 22:36 | XMS REPORT ---
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
--- OUTSIDE RECORDS SUMMARY | 2019-12-15 22:36 | XMS REPORT ---
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
--- NOTE | 2019-12-15 23:04 | Emergency Department Note ---
History of Present Illnes History of Present Illness Chief Complaint: Laceration History of Present Illness This is a 89 year old female, SHE C/O LACERATION TO LEFT FOOT AFTER DR OPPING A PLATE ON IT, SHE HAS APPROX 1CM LAC TO MEDIAL UPPER LEFT FOOT WITH DRY BLOOD ON THE WHOLE FOOT. BLEEDING STOPPED [employer]. THE WOUND WAS PACKED WITH KERLEX . Historian: Patient Arrival Mode: Car Driver Medic Required: No Onset (how long ago): hour(s) (6 hours) Radiation: Reports non-radiation Severity: moderate Onset quality: sudden Progression: unchanged Chronicity: new Relieving factors: none Exacerbating factors: none Associated symptoms: Reports denies other symptoms Treatments prior to arrival: none Past Medical/Family History Physician Review I have reviewed the patient's past medical and family history. Any updates have been documented here. Past Medical History Recent Fever: No Clinical Suspicion of Infectio: No New/Unexplained Change in Ment: No Past Medical History: Hypertension, Diabetes Other Medical History: HIGH CHOLESTEROL neuropathy Past Surgical History: Cholecysctectomy, Appendectomy, Hysterectomy, T&A Other Surgery: left endartectomy (2013), back surgery Social History Smoking Cessation: Never Smoker Counseling Performed: No Any Illegal Drug Use: No Family History Family history of heart diseas: No Other Last Tetanus: OOD Any Pre-Existing Lines (PICC,: No Review of Systems Review of Systems Constitutional: Reports no symptoms EENTM: Reports no symptoms Cardiovascular: Reports no symptoms Respiratory: Reports no symptoms Gastrointestinal: Reports no symptoms Genitourinary: Reports no symptoms Musculoskeletal: Reports no symptoms Integumentary: Reports as per HPI Neurological: Reports no symptoms Psychological: Reports no symptoms Endocrine: Reports no symptoms Hematological/Lymphatic: Reports no symptoms Physical Exam Related Data Allergies: Coded Allergies: No Known Allergies (Unverified , 11/16/11) Triage Vital Signs Vital Signs Date Time Temp Pulse Resp B/P (MAP) Pulse Ox O2 Delivery O2 Flow Rate FiO2 12/15/19 22:10 98.6 57 18 170/90 97 Vital signs reviewed: Yes Physical Exam CONSTITUTIONAL Constitutional: Present well-developed, Present well-nourished HENT HENT: Present normocephalic, Present atraumatic, Present oropharynx clear/moist, Present nose normal HENT L/R: Present left ext ear normal, Present right ext ear normal EYES Eyes: Reports PERRL, Reports conjunctivae normal NECK Neck: Present ROM normal PULMONARY Pulmonary: Present effort normal, Present breath sounds normal CARDIOVASCULAR Cardiovascular: Present regular rhythm, Present heart sounds normal, Present capillary refill normal, Present normal rate GASTROINTESTINAL Abdominal: Present soft, Present nontender, Present bowel sounds normal GENITOURINARY Genitourinary: Present exam deferred SKIN Skin: Present warm, Present dry, Present other (laceration about 1 cm left dorsal foot) MUSCULOSKELETAL Musculoskeletal: Present ROM normal NEUROLOGICAL Neurological: Present alert, Present oriented x 3, Present no gross motor or sensory deficits PSYCHOLOGICAL Psychological: Present mood/affect normal, Present judgement normal Procedures Laceration Laceration: Laceration 1 (left dorsal foot, near medial ankle) Site: lower extremity Side: left Size (cm): 1 Depth: simple, single layer Local anesthesia: lidocaine 1% Amount of anesthesia (mL): 3 Pre-repair: wound exposed, irrigated extensively Skin layer closed with: nylon Size (cm): 4-0 Number of sutures: 2 Technique: simple, interrupted Additional comments abx oint applied, cover with bandage and [place] Assessment & Plan Medical Decision Making MDM laceration Reassessment Reassessment time: 22:42 Reassessment feeling better Assessment & Plan Final Impression: (1) Laceration of left foot excluding toes (2) Acute pain due to trauma Depart Disposition: HOME, SELF-CARE Last Vital Signs Date Time Temp Pulse Resp B/P (MAP) Pulse Ox O2 Delivery O2 Flow Rate FiO2 12/15/19 22:10 98.6 57 18 170/90 97 Home Meds Reported Medications Glipizide (GLIPIZIDE) 5 Mg Tablet, 5 MG PO BID, TAB 04/18/15 Simvastatin (Simvastatin) 80 Mg Tablet, 80 MG PO DAILY 11/16/11 Pioglitazone Hcl (Actos) 30 Mg Tablet, 30 MG PO DAILY 11/16/11 Glyburide, Micro/Metformin Hcl (Glyburid-Metformin 5-500 Mg Tb) 1 Each Tablet, 2 EACH PO BID 11/16/11 Physician Attestation Provider Attestation f/u PCP 2 wks for stitches removal EFRAÍN BOURNE MD Dec 15, 2019 23:04
== END 2019-12-15 22:50 | disposition home or self-care (01) ==
LOC: FSED 22:10
DX: S91.312A Laceration without foreign body, left foot, initial encounter (principal); W20.8XXA Other cause of strike by thrown, projected or falling object, initial encounter; I10 Essential (primary) hypertension; E11.9 Type 2 diabetes mellitus without complications; E78.00 Pure hypercholesterolemia, unspecified
CPT/HCPCS: 99283